=== PATIENT | male | born 1960 | race Caucasian/White ===

== ENCOUNTER 2018-05-14 19:42 | Emergency (ER) | payer MEDICAID ==
[2018-05-14 20:00] VITALS: BP 127/72
== END 2018-05-14 21:51 | disposition home or self-care (01) ==
LOC: ED 19:42
DX: I88.9 Nonspecific lymphadenitis, unspecified (principal); I10 Essential (primary) hypertension; E11.9 Type 2 diabetes mellitus without complications; E78.00 Pure hypercholesterolemia, unspecified